=== PATIENT | female | born 1945 | race Caucasian/White ===

== ENCOUNTER 2019-05-24 16:09 | Emergency (ER) | payer MEDICARE, MEDICAID ==
[~2019-05-24] VITALS: Ht 160 cm; Wt 53.0 kg
[~2019-05-24 16:09] MED LIST: etomidate 2mg/ml inj. ONE; rocuronium 10mg/ml inj IV ONE
--- NOTE | 2019-05-24 16:14 | NUR ---
BOLUS 2 LITERS STARTED
--- NOTE | 2019-05-24 16:20 | NUR ---
1620 ICE APPLIED FOR COOLING MEASURES
--- NOTE | 2019-05-24 16:30 | NUR ---
DR. LEWIS INTUBATED SUCCESSFULLY X1, SIZE 7.5
--- NOTE | 2019-05-24 16:30 | NUR ---
ett 7.5]
[2019-05-24] MEDS ORDERED: normal saline 1000ML IV soln IV ONE (16:35)
--- NOTE | 2019-05-24 16:36 | NUR ---
GIORDANO CATH 16FR. DRAINING CLOUDY YELLOW URINE
[2019-05-24] MEDS ORDERED: normal saline 1000ML IV soln IVB ONE (16:50)
[2019-05-24 16:55] LABS: BASOPHILS % (AUTO) 0.2 % (0-1); EOSINOPHILS % (AUTO) 0.1 % (0-6); HEMATOCRIT 32.3 % (35.0-45.0); LYMPHOCYTES # (AUTO) 0.4 X10'3 (1.1-4.8); LYMPHOCYTES % (AUTO) 2.5 % (21-51); MEAN CORPUSCULAR HEMOGLOBIN 31.6 PG (27.0-31.0); MEAN CORPUSCULAR HGB CONC 34.2 g/dL (33.0-36.5); MEAN CORPUSCULAR VOLUME 92.5 FL (78-98); MEAN PLATELET VOLUME 6.9 FL (7.4-10.4); MONOCYTES # (AUTO) 0.5 X10'3 (0-0.9); NEUTROPHILS # (AUTO) 14.4 X10'3 (1.8-7.7); NEUTROPHILS % (AUTO) 94.2 % (42-75); PLATELET COUNT 291 X10'3 (140-440); RED BLOOD COUNT 3.49 X10'6 (4.20-5.60); RED CELL DISTRIBUTION WIDTH 13.5 % (11.5-14.5); WHITE BLOOD COUNT 15.3 X10'3 (4.5-11.0)
[2019-05-24] MEDS ORDERED: propofol 1000mg/100ml bottle 100 ML IV PRN (16:57)
[2019-05-24] MEDS ORDERED: propofol 1000mg/100ml bottle 100 ML IV ONE (16:59)
[2019-05-24 17:04] LABS: CLARITY,URINE CLEAR (Clear); COLOR,URINE YELLOW (Yellow); GLUCOSE, URINE NEGATIVE (Neg); KETONES,URINE 15 mg/dl (Neg); LEUKOCYTE ESTERASE ,URINE NEGATIVE (Neg); NITRITES, URINE NEGATIVE (Neg); OCCULT BLOOD,URINE TRACE-INTACT (Neg); PH,URINE 5.5 (4.8-8.0); PROTEIN,URINE TRACE mg/dl (Neg); UROBILINOGEN,URINE 0.2 E.U/dL (0.2-1.0)
[2019-05-24 17:05] LABS: URINE AMPHETAMINE SCREEN NEGATIVE (Neg); URINE BARBITUATE SCREEN NEGATIVE (Neg); URINE BENZODIAZEPINES SCREEN NEGATIVE (Neg); URINE CANNABINOID SCREEN NEGATIVE (Neg); URINE COCAINE SCREEN NEGATIVE (Neg); URINE METHADONE SCREEN NEGATIVE (Neg); URINE OPIATE SCREEN POSITIVE (Neg); URINE PHENCYCLIDINE SCREEN NEGATIVE (Neg)
[2019-05-24 17:08] LABS: PARTIAL THROMBOPLASTIN TIME 23 SECONDS (22-32)
[2019-05-24 17:11] LABS: AMMONIA < 10 UMOL/L (11-32)
[2019-05-24 17:15] LABS: LACTIC SEPSIS 1.4 MMOL/L (0.4-2.0)
[2019-05-24 17:18] LABS: UA COLLECTION TYPE FOLEY CATH
[2019-05-24 17:19] LABS: BACTERIA,URINE FEW /HPF (Neg); HYALINE CASTS 0-3 /LPF (NEGATIVE); MUCUS STRANDS MODERATE /LPF (Neg); SQUAMOUS EPITHELIAL CELL,UR FEW /LPF (FEW); WBC,URINE 0-4 /HPF (0-4)
--- NOTE | 2019-05-24 17:21 | NUR ---
TO CT SCAN VIA [facility] WITH NURSE AND RT.
[2019-05-24] MEDS ORDERED: dexamethasone sod phosphate 10mg/ml inj IV STA (17:26)
--- NOTE | 2019-05-24 17:28 | NUR ---
STEMI ALERT HAS BEEN CANCELLED, TRANSFER INITATED AT [facility]
[2019-05-24 17:30] LABS: ALANINE AMINOTRANSFERASE 24 U/L (12-78); ALBUMIN 3.4 G/DL (3.4-5.0); ALBUMIN/GLOBULIN RATIO 1.3 (1.1-1.5); ALKALINE PHOSPHATASE 73 IU/L (46-116); ANION GAP 9 (8-16); ASPARTATE AMINO TRANSFERASE 31 U/L (10-37); BILIRUBIN,TOTAL 0.3 MG/DL (0.1-1.0); BLOOD UREA NITROGEN 18 MG/DL (7-18); BUN/CREATININE RATIO 21.4 (6.6-38.0); CHLORIDE 115 MMOL/L (99-107); CREATININE 0.84 MG/DL (0.40-0.90); GLUCOSE 183 MG/DL (70-104); POTASSIUM 3.5 MMOL/L (3.5-5.1); SODIUM 150 MMOL/L (135-145); TOTAL CARBON DIOXIDE 26.1 MMOL/L (24-32); TOTAL PROTEIN 6.1 G/DL (6.4-8.2); eGFR 66 ML/MIN
[2019-05-24 17:39] LABS: CREATINE KINASE 603 U/L (26-192); ETHANOL < 0.010 GM/DL (0.0-0.010); MAGNESIUM 1.9 MG/DL (1.5-2.4)
[2019-05-24 18:00] VITALS: BP 160/112
--- NOTE | 2019-05-24 18:10 | NUR ---
GAVE REPORT TO HAYLEE NICHOLS AT [facility]. TRANSFER TEAM HERE AND PT TRANSFERRED. KASH LEACH ACCOMPANIED TEAM TO [facility].
[2019-05-24] MEDS ORDERED: naloxone 2mg/2ml inj IV STA (18:21)
[2019-05-24] MEDS ORDERED: etomidate 2mg/ml inj. IV ONE (18:25)
[2019-05-24] MEDS ORDERED: rocuronium 10mg/ml inj IV ONE (18:25)
--- NOTE | 2019-05-24 19:28 | NUR ---
PT CAME INTO ER UNRESPONSIVE AND NO FAMILY, FRIENDS AT BEDSIDE. PT COULD POSSIBLY BE HOMELESS ACCORDING TO REPORT FROM DIRECTOR HARDWARE. STATES, IT LOOKS LIKE SHE LIVES IN HER CARE. UNABLE TO COLLECT DATA FOR FALL PRECAUTION, HOMELESS SCREENING, PATIENT HISTORY, ALLERGIES, MED REC
[2019-05-24] MEDS ORDERED: levetiracetam inj 1,000 MG in normal saline 100ml IV soln 90 ML IV SCH (20:00)
[2019-05-25 08:51] LABS: ABG HCO3 24.8 mmol/L (22.0-26.0); ABG PCO2 (T) 44.3 mmHg (35.0-45.0); ABG PH (T) 7.373 (7.350-7.450); ABG PO2 (T) 59.4 mmHg (83-108); ALLEN'S TEST Positive; PATIENT TEMPERATURE 38.9
== END 2019-05-24 18:10 | disposition short-term general hospital (02) ==
LOC: ER 16:09
PROC: 0BH17EZ Insertion of Endotracheal Airway into Trachea, Via Natural or Artificial Opening (ICD-10-PCS; principal; 2019-05-24)
PROC: 5A1935Z Respiratory Ventilation, Less than 24 Consecutive Hours (ICD-10-PCS; 2019-05-24)
DX: S06.369A Traumatic hemorrhage of cerebrum, unspecified, with loss of consciousness of unspecified duration, initial encounter (principal); T67.0XXA Heatstroke and sunstroke, initial encounter; R41.82 Altered mental status, unspecified; R00.0 Tachycardia, unspecified; X58.XXXA Exposure to other specified factors, initial encounter; Y93.89 Activity, other specified; Y92.89 Other specified places as the place of occurrence of the external cause; E86.0 Dehydration; R06.89 Other abnormalities of breathing
CPT/HCPCS: 31500; 36415; 36600; 70450; 71045; 80053; 80305; 80320; 81001; 82140; 82550; 82803; 83605; 83735; 83880; 84145; 84484; 85025; 85610; 85730; 87040; 93005; 94002; 94760; 96361; 96374; 96375; 99291; J1100; J1953; J2704; J7030